=== PATIENT | male | born 1955 | race Caucasian/White ===

== ENCOUNTER 2018-09-09 15:25 | Inpatient (IN) | payer OTHER, MEDICAID ==
[~2018-09-09] VITALS: Ht 180.3 cm; Wt 68.3 kg
[2018-09-09] MEDS ORDERED: HALOPERIDOL 5 MG TABLET PO PRN (20:15)
[2018-09-09] MEDS ORDERED: LORazepam 2 MG TABLET PO PRN (20:15)
[2018-09-09] MEDS ORDERED: ZOLPIDEM TARTRATE 10 MG TABLET PO PRN (20:15)
[2018-09-09 20:43] VITALS: BP_SYST 126; BP_SYST 128; BP_DIAS 100; BP_DIAS 70
[2018-09-09] MEDS ORDERED: DENTURE ADHESIVE 68 GM CREAM DT PRN (21:15)
[2018-09-09] MEDS ORDERED: ONDANSETRON HCL 4 MG TABLET PO PRN (21:45)
[2018-09-09] MEDS ORDERED: DOCUSATE SODIUM 100 MG CAPSULE PO PRN (21:45)
[2018-09-09] MEDS ORDERED: ALBUTEROL SULFATE HFA 90 MCG/PUFF 8 GM INHALER IH PRN (21:45)
[2018-09-09] MEDS ORDERED: IBUPROFEN 400 MG TABLET PO PRN (21:45)
[2018-09-09] MEDS ORDERED: LOPERAMIDE HCL 2 MG CAPSULE PO PRN (21:45)
[2018-09-09] MEDS ORDERED: MAG HYDROX/AL HYDROX/SIMETH ES 30 ML SUSPENSION UDCUP PO PRN (21:45)
[2018-09-09] MEDS ORDERED: NICOTINE 14 MG/24 HOUR PATCH TD PRN (21:45)
[2018-09-09] MEDS ORDERED: ACETAMINOPHEN 325 MG TABLET PO PRN (21:45)
[2018-09-09] MEDS ORDERED: PETROLATUM,WHITE 71 GM JELLY TP PRN (21:45)
[2018-09-09] MEDS ORDERED: MAGNESIUM HYDROXIDE SUSPENSION 30 ML UDCUP PO PRN (21:45)
[2018-09-09] MEDS ORDERED: GuaiFENesin/D-METHORPHAN [SUGAR-FREE] 200-20MG/10 ML SYRUP UDCUP PO PRN (21:45)
[2018-09-09] MEDS ORDERED: CloNIDine HCL 0.1 MG TABLET PO PRN (21:45)
[2018-09-10 04:49] VITALS: BP 121/68
[2018-09-10 08:07] VITALS: BP 128/82
[2018-09-10 08:31] LABS: BASOPHILS % (AUTO) 0.6 % (0.0-2.0); EOSINOPHILS % (AUTO) 7.5 % (1.0-6.0); HEMATOCRIT 38.1 % (41-53); HEMOGLOBIN 12.7 g/dL (13.5-17.5); LYMPHOCYTES # (AUTO) 2.1 K/uL (1.0-4.8); MEAN CORPUSCULAR HEMOGLOBIN 31.6 pg (26.0-34.0); MEAN CORPUSCULAR HGB CONC 33.2 G/dL (31.0-37.0); MEAN CORPUSCULAR VOLUME 95 fL (80-100); MONOCYTES # (AUTO) 0.5 K/uL (0.1-1.0); MONOCYTES % (AUTO) 9.5 % (2.0-9.0); NEUTROPHILS # (AUTO) 2.6 K/uL (1.8-7.7); NEUTROPHILS % (AUTO) 45.4 % (40.0-70.0); PLATELET COUNT (AUTO) 116 K/uL (150-450); RED BLOOD CELL COUNT(AUTO) 4.01 MIL/uL (4.50-5.90); RED CELL DISTRIBUTION WIDTH 13.4 % (11.5-14.5)
[2018-09-10 09:04] LABS: HEMOGLOBIN A1C 5.4 % (4.5-6.2)
[2018-09-10 09:12] LABS: ALANINE AMINOTRANSFERASE 85 U/L (12-78); ALBUMIN 2.8 g/dL (3.4-5.0); ALKALINE PHOSPHATASE 68 U/L (46-116); ANION GAP 8 mmol/L (8-16); ASPARTATE AMINOTRANSFERASE 85 U/L (15-37); BILIRUBIN,TOTAL 0.4 mg/dL (0.1-1.0); CALCIUM, TOTAL 8.9 mg/dL (8.8-10.5); CARBON DIOXIDE 28 mmol/L (22-29); CHLORIDE 103 mmol/L (98-107); CHOLESTEROL 103 mg/dL (131-200); CREATININE 0.95 mg/dL (0.60-1.30); FREE T4 (FREE THYROXINE) 0.85 ng/dL (0.76-1.46); GLOMERULAR FILTR. RATE CALC > 60 mL/min (>60); GLUCOSE,RANDOM 93 mg/dL (70-110); HDL CHOLESTEROL 34 mg/dL (40-60); LDL CHOL (CALC.) 58 mg/dL (0-130); SODIUM SERUM 139 mmol/L (136-145); THYROID STIMULATING HORMONE 6.04 uIU/mL (0.36-3.74); TOTAL PROTEIN, SERUM 7.3 g/dL (6.4-8.2); TRIGLYCERIDES 55 mg/dL (15-150); UREA NITROGEN, BLOOD 16 mg/dL (7-18)
[2018-09-10] MEDS: RisperiDONE 1 MG TABLET PO SCH ×2 (10:37→16:39)
[2018-09-10 16:08] VITALS: BP 121/63
[2018-09-11 06:38] VITALS: BP 126/78
[2018-09-11 08:18] VITALS: BP 118/65
[2018-09-11] MEDS: RisperiDONE 1 MG TABLET PO SCH ×2 (08:36→16:35)
[2018-09-11 16:11] VITALS: BP 139/68
[2018-09-12 02:02] VITALS: BP 137/79
[2018-09-12 08:15] VITALS: BP 118/75
[2018-09-12] MEDS: RisperiDONE 1 MG TABLET PO SCH ×2 (08:29→16:32)
[2018-09-12 16:06] VITALS: BP 137/88
[2018-09-12] MEDS: FERROUS SULFATE 325 MG EC TABLET PO SCH (16:32)
[2018-09-13 03:21] VITALS: BP 130/75
[2018-09-13] MEDS: FERROUS SULFATE 325 MG EC TABLET PO SCH (06:26)
[2018-09-13 08:05] VITALS: BP 140/76
[2018-09-13] MEDS: RisperiDONE 1 MG TABLET PO SCH (08:08)
[2018-09-13] MEDS ORDERED: RISP1 PO (09:26)
[2018-09-13] MEDS ORDERED: FERR-89 PO (09:26)
== END 2018-09-13 13:20 | disposition home or self-care (01) | DRG 885 ==
LOC: B2X 20:09
PROVIDERS: ADMIT Psychiatry & Neurology Child & Adolescent Psychiatry; ATTEND Psychiatry & Neurology Child & Adolescent Psychiatry
DX: F29 Unspecified psychosis not due to a substance or known physiological condition (principal); D64.9 Anemia, unspecified; E61.1 Iron deficiency; F10.10 Alcohol abuse, uncomplicated; R74.0 Nonspecific elevation of levels of transaminase and lactic acid dehydrogenase [LDH]; F41.9 Anxiety disorder, unspecified
CPT/HCPCS: 82728; 83036; 83540; 83550; 84439; 84443